=== PATIENT | female | born 1950 | race Caucasian/White ===

== ENCOUNTER → 2017-11-05 | Day surgery (SDC) | payer MEDICARE ==
[~2017-11-05] MED LIST: MEPERIDINE PF 25 MG/ML VIAL.; MIDAZOLAM HCL/PF 5 MG/5 ML VIAL.
[2017-11-05] MEDS: IV RINGERS,LACTATED 1000ML 1,000 ML IV (13:16)
== END | disposition home or self-care (01) ==
LOC: SURG 12:34
DX: Z09 Encounter for follow-up examination after completed treatment for conditions other than malignant neoplasm (principal); K64.0 First degree hemorrhoids; K63.5 Polyp of colon; K22.2 Esophageal obstruction; K29.50 Unspecified chronic gastritis without bleeding; Z86.010 Personal history of colon polyps; Z88.8 Allergy status to other drugs, medicaments and biological substances; K21.0 Gastro-esophageal reflux disease with esophagitis; Z88.2 Allergy status to sulfonamides; Z88.0 Allergy status to penicillin; Z91.040 Latex allergy status; F41.9 Anxiety disorder, unspecified; M19.90 Unspecified osteoarthritis, unspecified site; Z85.828 Personal history of other malignant neoplasm of skin; M79.7 Fibromyalgia; Z86.19 Personal history of other infectious and parasitic diseases; Z80.0 Family history of malignant neoplasm of digestive organs; Z87.891 Personal history of nicotine dependence; Z79.899 Other long term (current) drug therapy; Z90.710 Acquired absence of both cervix and uterus; Z98.890 Other specified postprocedural states; Z98.51 Tubal ligation status
CPT/HCPCS: 43235; J2175; J2250